=== PATIENT | male | born 1985 | race Asian ===

== ENCOUNTER 2018-07-07 09:35 | Emergency (ER) | payer OTHER ==
[~2018-07-07 09:35] MED LIST: COZAAR100 M1 PO; PYRIDIUM200 M1 PO; VIBRAMYCIN100 MG PO
--- NOTE | 2018-07-07 09:57 | ED GI/GU/ABDOMINAL COMPLAINT ---
History of Present Illness General Chief Complaint: Male Genitourinary Problems Stated Complaint: WANTS KIDNEY STONE REMOVED,SEEN HERE 07/06 FOR SAME Source: patient, old records Exam Limitations: no limitations Vital Signs & Intake/Output Vital Signs & Intake/Output NOT TAKEN Allergies Coded Allergies: No Known Allergies (07/06/18) Reconcile Medications Doxycycline Hyclate (Vibramycin) 100 MG CAPSULE 1 CAP PO BID cystitis Losartan (Cozaar) 100 MG TABLET 1 TAB PO DAILY HYPERTENSION (Reported) Phenazopyridine HCl (Pyridium) 200 MG TABLET 1 TAB PO TID cytitis Triage Note: EVALUATED BY IN TRIAGE. C/O BLOOD IN URINE, SEE HERE YESTERDAY FOR SAME. Triage Nurses Notes Reviewed? yes HPI: Patient was seen yesterday for flank and suprapubic pain. Patient was found to have calcium oxalate crystals in his urine. His CAT scan was normal. Patient was given medications and told to follow-up with urology. This morning he urinated and there was bright red blood in his urine. He got nervous and came back to the emergency department for evaluation. Past History Travel History Traveled to [facility] past 21 day No Medical History Any Pertinent Medical History? none Neurological: NONE EENT: NONE Cardiovascular: NONE Respiratory: NONE Gastrointestinal: NONE Hepatic: NONE Renal: NONE Musculoskeletal: NONE Psychiatric: NONE Endocrine: NONE Surgical History Surgical History: none Psychosocial History What is your primary language Czech Tobacco Use: Never used ETOH Use: occasional use Illicit Drug Use: denies illicit drug use Family History Hx Contributory? No Review of Systems Review of Systems Constitutional: Reports: no symptoms. Respiratory: Reports: no symptoms. Cardiovascular: Reports: no symptoms. Genitourinary: Reports: see HPI, hematuria. Neurological/Psychological: Reports: no symptoms. Immunologic/Allergic: Reports: no symptoms. Physical Exam Physical Exam General Appearance: well developed/nourished, alert, awake, anxious Head: atraumatic Eyes: Bilateral: PERRL, EOMI. Gastrointestinal: normal bowel sounds, soft, non-tender, no organomegaly Neurologic/Psych: no motor/sensory deficits, awake, alert, oriented x 3, normal gait, normal mood/affect Core Measures ACS in differential dx? No Sepsis Present: No Sepsis Focused Exam Completed? No Progress Differential Diagnosis: ureterolithiasis, UTI/pyelo Plan of Care: FOLLOW UP WITH UROLOGY Initial ED EKG: none Departure Departure Disposition: HOME OR SELF CARE Condition: Stable Clinical Impression Primary Impression: Hematuria Referrals: Chanel Vargas APRN (PCP/Family) Additional Instructions: FOLLOW UP WITH THE UROLOGIST PROVIDED LAST NIGHT CONTINUE THE MEDICATIONS PRESCRIBED LAST NIGHT REUTRN IF SYMPTOMS WORSEN OR FOR ANY CONCENRS Departure Forms: Customer Survey General Discharge Information
== END 2018-07-07 10:51 ==
LOC: ERH 09:35
DX: R31.9 Hematuria, unspecified (principal)